=== PATIENT | female | born 2000 | race Caucasian/White ===

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

== ENCOUNTER 2022-12-02 15:38 | Emergency (ER) | payer OTHER ==
[~2022-12-02 15:38] MED LIST: IBUP-2213 PO; ONDA-188 PO
== END 2022-12-02 15:40 | disposition left against medical advice (07) ==
LOC: MED 15:38
DX: M25.569 Pain in unspecified knee (principal); Z53.21 Procedure and treatment not carried out due to patient leaving prior to being seen by health care provider

== ENCOUNTER 2022-12-11 21:37 | Emergency (ER) | payer OTHER ==
[~2022-12-11] VITALS: Ht 149.9 cm; Wt 54.0 kg
[2022-12-11 21:49] VITALS: BP 132/76; PULSE 100; RESP 18; TEMP 97.9; O2SAT 100
[2022-12-11] MEDS ORDERED: PRED20TA5 PO (23:05)
[2022-12-11] MEDS ORDERED: ACYC400T14 PO (23:05)
[2022-12-11] MEDS ORDERED: CARB15DR89 OP (23:05)
== END 2022-12-11 23:45 | disposition home or self-care (01) ==
LOC: MED 21:37
DX: G51.0 Bell's palsy (principal); Z79.899 Other long term (current) drug therapy; Z79.1 Long term (current) use of non-steroidal anti-inflammatories (NSAID)
CPT/HCPCS: 70450; 81025; 99284

== ENCOUNTER 2023-11-25 13:34 | Emergency (ER) | payer OTHER ==
[~2023-11-25] VITALS: Ht 149.9 cm; Wt 59.9 kg
[~2023-11-25 13:34] MED LIST changes: +ACYC400T14 PO; +CARB15DR89 OP; +PRED20TA5 PO
[2023-11-25 13:57] VITALS: BP 104/70; PULSE 101; RESP 20; TEMP 97.4; O2SAT 98
[2023-11-25] MEDS: IBUPROFEN 600 MG TAB PO ONE (15:07)
== END 2023-11-25 15:55 | disposition home or self-care (01) ==
LOC: MED 13:34
DX: S83.91XA Sprain of unspecified site of right knee, initial encounter (principal); R03.0 Elevated blood-pressure reading, without diagnosis of hypertension; Z79.1 Long term (current) use of non-steroidal anti-inflammatories (NSAID); Z79.899 Other long term (current) drug therapy; W17.89XA Other fall from one level to another, initial encounter; Y93.89 Activity, other specified; Y92.89 Other specified places as the place of occurrence of the external cause; Y99.8 Other external cause status
CPT/HCPCS: 29505; 73562; 99283